=== PATIENT | female | born 1950 | race African-American/Black ===

== ENCOUNTER 2017-06-21 15:32 | Emergency (ER) | payer MEDICARE, BC ==
[~2017-06-21] VITALS: Ht 162.6 cm; Wt 73.0 kg
[2017-06-21] MEDS ORDERED: SODIUM CHLORIDE 0.9% 1,000 ML IV ONE (17:55)
[2017-06-21] MEDS ORDERED: KETOROLAC 30MG/ML VIAL IV STA (17:55)
[2017-06-21] MEDS ORDERED: METOCLOPRAMIDE HCL 10MG/2ML VIAL IV ONE (18:00)
[2017-06-21] MEDS ORDERED: ONDANSETRON HCL 4MG/2ML VIAL IV ONE (18:45)
[2017-06-21 19:00] VITALS: BP 129/75
== END 2017-06-21 19:51 | disposition home or self-care (01) ==
LOC: ER 15:51
DX: R51 Headache (principal); H53.8 Other visual disturbances; M54.2 Cervicalgia; E11.9 Type 2 diabetes mellitus without complications; I10 Essential (primary) hypertension; E78.00 Pure hypercholesterolemia, unspecified
CPT/HCPCS: 99284; J1885; J2405; J7030

== ENCOUNTER 2018-06-04 19:55 | Emergency (ER) | payer MEDICARE, BC ==
[~2018-06-04] VITALS: Ht 162.6 cm; Wt 72.0 kg
[2018-06-04] MEDS ORDERED: SODIUM CHLORIDE 0.9% 1,000 ML IV ONE (20:44)
[2018-06-04] MEDS ORDERED: ACETAMINOPHEN 325MG TABLET PO STA (20:44)
[2018-06-04 21:20] LABS: CLARITY URINE CLEAR (CLEAR); COLOR URINE YELLOW (YELLOW); KETONES URINE TRACE (NEGATIVE); LEUKOCYTE ESTERASE URINE NEGATIVE (NEGATIVE); NITRITE URINE NEGATIVE (NEGATIVE); OCCULT BLOOD URINE NEGATIVE (NEGATIVE); PROTEIN URINE TRACE (NEGATIVE); SPECIFIC GRAVITY URINE 1.026 (1.005-1.030); UROBILINOGEN URINE 0.2 E.U./dL (0.2-1.0)
[2018-06-04 21:21] LABS: BASOPHILS % 0.6 % (0.0-2.0); EOSINOPHILS % 1.2 % (0.0-5.0); HEMATOCRIT. 37.7 % (36.0-48.0); HEMOGLOBIN. 12.2 g/dL (12.0-16.0); LYMPHOCYTES % 9.6 % (20.0-50.0); MEAN CORPUSCULAR HEMOGLOBIN 26.9 pg (28.0-32.0); MEAN CORPUSCULAR VOLUME 82.8 fL (81.0-99.0); MEAN PLATELET VOLUME 8.6 fl (7.4-10.4); MONOCYTES % 8.2 % (2.0-8.0); NEUTROPHILS % 80.4 % (40.0-76.0); PLATELET 273 x1000/uL (130-400); RED BLOOD CELL COUNT 4.56 mill/uL (4.2-5.4); RED CELL DISTRIBUTION WIDTH 13.7 % (11.6-14.6)
[2018-06-04 21:25] LABS: PROTHROMBIN TIME 10.4 sec (9.1-11.1)
[2018-06-04 21:26] LABS: CHLORIDE 108 mEq/L (98-107)
[2018-06-04 22:25] VITALS: BP 111/69
== END 2018-06-04 23:05 | disposition home or self-care (01) ==
LOC: ER 19:55 → CANBEDREQ 23:39
DX: B34.9 Viral infection, unspecified (principal); R00.0 Tachycardia, unspecified; E11.9 Type 2 diabetes mellitus without complications; I10 Essential (primary) hypertension; Z90.49 Acquired absence of other specified parts of digestive tract; Z90.721 Acquired absence of ovaries, unilateral
CPT/HCPCS: 36415; 71045; 80053; 81003; 83605; 84145; 84484; 85025; 85610; 87040; 87086; 87804; 93005; 99284; J7030

== ENCOUNTER 2020-04-27 17:45 | Emergency (ER) | payer MEDICARE, BC ==
[~2020-04-27] VITALS: Ht 157.5 cm; Wt 72.0 kg
[2020-04-27 17:46] VITALS: BP 147/82
[2020-04-27] MEDS ORDERED: ASPIRIN 325MG EC TABLET PO ONE (18:45)
[2020-04-27 19:15] LABS: BASOPHILS % 0.8 % (0.0-2.0); EOSINOPHILS % 3.1 % (0.0-5.0); HEMOGLOBIN. 12.9 g/dL (12.0-16.0); LYMPHOCYTES % 28.8 % (20.0-50.0); MEAN CORPUSCULAR HEMOGLOBIN 26.6 pg (28.0-32.0); MEAN CORPUSCULAR VOLUME 82.5 fL (81.0-99.0); MEAN PLATELET VOLUME 8.6 fl (7.4-10.4); MONOCYTES % 6.5 % (2.0-8.0); NEUTROPHILS % 60.8 % (40.0-76.0); PLATELET 280 x1000/uL (130-400); RED BLOOD CELL COUNT 4.85 mill/uL (4.2-5.4)
[2020-04-27 19:22] LABS: CHLORIDE 109 mEq/L (98-107)
== END 2020-04-27 22:28 | disposition home or self-care (01) ==
LOC: ER 17:45
DX: R07.89 Other chest pain (principal); E11.9 Type 2 diabetes mellitus without complications; I10 Essential (primary) hypertension; E78.00 Pure hypercholesterolemia, unspecified; Z90.49 Acquired absence of other specified parts of digestive tract; Z98.890 Other specified postprocedural states
CPT/HCPCS: 36415; 71045; 80053; 83880; 84484; 85025; 93005; 99285